=== PATIENT | female | born 1990 | race Caucasian/White ===

== ENCOUNTER → 2018-07-26 | Outpatient (CLI) | payer OTHER ==
--- NOTE | 2018-07-26 14:31 | REP ---
Right foot: Four views. History: Pain. Post injury. Swelling and bruising. Findings: Four views of the right foot demonstrate a transversely oriented nondisplaced fracture through the proximal end of the fifth metatarsal. This is slightly diastatic but not displaced. There is associated soft-tissue swelling. Impression: Nondisplaced fifth proximal metatarsal fracture. Electronically Signed by Anshu Aguilar MD 07/26/2018 02:23 P
--- NOTE | 2018-07-26 16:35 | REP ---
Right ankle series: Four views. History: Pain. Findings: Four views right ankle demonstrate an intact ankle mortise. No ankle fracture is seen. The fifth proximal metatarsal fracture is noted. Impression: Nondisplaced fracture of the fifth proximal metatarsal. No ankle fracture is seen. Clothing artifact is noted. Electronically Signed by Anshu Aguilar MD 07/26/2018 04:26 P
== END ==
LOC: M LRY 13:38
PROVIDERS: ATTEND Nurse Practitioner Family
DX: S92.351A Displaced fracture of fifth metatarsal bone, right foot, initial encounter for closed fracture (principal); Y92.9 Unspecified place or not applicable; Y93.9 Activity, unspecified; Y99.9 Unspecified external cause status; X58.XXXA Exposure to other specified factors, initial encounter
CPT/HCPCS: 29515; 73610; 73630; G0463

== ENCOUNTER → 2019-02-10 | Outpatient (REF) | payer OTHER | LOC: M SFHCLERA 08:41 | PROVIDERS: ATTEND Nurse Practitioner Family | DX: N92.6 Irregular menstruation, unspecified (principal) | CPT/HCPCS: 84702; G0463 ==

== ENCOUNTER → 2019-04-02 | Outpatient (CLI) | payer OTHER ==
[2019-04-02 13:22] LABS: BASO % 0.4 % (0.0-1.0); EOS # 0.1 10^3/uL (0.0-0.5); EOS % 1.3 % (0.0-3.0); HEMATOCRIT 43.1 % (36.0-47.0); HEMOGLOBIN 13.7 g/dl (12.0-15.5); LYMPH # 1.9 10^3/uL (1.5-5.0); LYMPH % 17.9 % (24.0-44.0); MEAN CORPUSCULAR HGB CONC 31.8 g/dl (32.0-36.5); MEAN CORPUSCULAR VOLUME 84.8 fl (80.0-96.0); MONO # 0.6 10^3/uL (0.0-0.8); MONO % 5.7 % (0.0-5.0); NEUTROPHILS # 7.8 10^3/uL (1.5-8.5); NEUTROPHILS % 74.3 % (36.0-66.0); PLATELET COUNT, AUTOMATED 288 10^3/uL (150-450); RED BLOOD COUNT 5.08 10^6/uL (4.00-5.40); WHITE BLOOD COUNT 10.5 10^3/uL (4.0-10.0)
[2019-04-02 14:38] LABS: HEPATITIS C VIRUS ABY INDEX 0.1 INDEX (<0.8); HIV 1&2 SCREEN CENTAUR NEGATIVE (NEGATIVE); RUBELLA IgG QUALITATIVE IMMUNE (IMMUNE)
[2019-04-02 15:06] LABS: CHLAMYDIA DNA AMPLIFICATION NEGATIVE (NEGATIVE); GC DNA AMPLIFICATION NEGATIVE (NEGATIVE)
== END ==
LOC: M PLALAB 10:48
PROVIDERS: ATTEND Obstetrics & Gynecology
DX: Z34.81 Encounter for supervision of other normal pregnancy, first trimester (principal)

== ENCOUNTER → 2019-05-19 | Outpatient (CLI) | payer OTHER ==
--- NOTE | 2019-05-20 02:40 | REP ---
Clinical: Anatomical evaluation. Comparison: None. Findings: Examination demonstrates a single live intrauterine in cephalic presentation. motion is identified by technologist. Placenta is noted anterior and grade I without evidence for placenta previa or abruption. Amniotic fluid volume is normal. Cervix measures 4.6 cm in length and appears closed. Nuchal cord cannot be excluded. Gestational age by LMP 18 weeks 3 days with MERRY 10/17/2019 . Gestational age by current measurements 17 weeks 6 days with MERRY 10/21/2019 . FHR equals 141 beats per minute. BPD 3.9 cm 18 weeks 0 days HC 14.9 cm 18 weeks 0 days AC 12.0 cm 17 weeks 5 days FL 2.5 cm 17 weeks 5 days HL 2.5 cm 17 weeks 4 days HC/AC ratio 1.24 Estimated weight 207 grams ( 22nd percentile). Anatomical assessment demonstrates normal structures including cranium, choroid plexus, cavum, cerebellum/posterior fossa, facial features, lungs, diaphragm, stomach, cord insertion/three-vessel cord, kidneys/bladder, spine, and extremities. Impression: 1. Single live intrauterine in cephalic presentation demonstrating appropriate interval growth. 2. Nuchal cord cannot be excluded. 3. Limited evaluation of the heart/ventricular outflow tracts may warrant reevaluation and follow-up. Electronically Signed by Lebron Whyte MD 05/20/2019 02:32 A
== END ==
LOC: M RAD 09:13
PROVIDERS: ATTEND Obstetrics & Gynecology
DX: Z34.82 Encounter for supervision of other normal pregnancy, second trimester (principal); Z36.89 Encounter for other specified antenatal screening; Z3A.18 18 weeks gestation of pregnancy

== ENCOUNTER → 2019-06-11 | Outpatient (CLI) | payer OTHER ==
--- NOTE | 2019-06-12 15:35 | REP ---
Clinical: Anatomical evaluation. Comparison: 05/19/2019 . Findings: Examination demonstrates a single live intrauterine in transverse (head to maternal right) presentation. motion is identified by technologist. Placenta is noted anterior and grade zero without evidence for placenta previa or abruption. Amniotic fluid volume is normal. Cervix measures 4.0 cm in length and appears closed. No evidence for nuchal cord. Gestational age by LMP 21 weeks 5 days with MERRY 10/17/2019 . Gestational age by current measurements 21 weeks 1 day with MERRY 10/21/2019 . FHR equals 148 beats per minute. Estimated weight 437 grams ( 43rd percentile). Anatomical assessment demonstrates normal structures including four-chamber heart/right ventricular outflow tracts, diaphragm, stomach, cord insertion/three-vessel cord, and bladder. Impression: Single live intrauterine in transverse lie demonstrating appropriate interval growth. Continued limited evaluation of the left cardiac ventricular outflow tract. In conjunction with prior examination the remainder of the anatomical assessment is complete and normal. Electronically Signed by Lebron Whyte MD 06/12/2019 03:26 P
== END ==
LOC: M WHC 09:32
PROVIDERS: ATTEND Advanced Practice Midwife
DX: O32.2XX0 Maternal care for transverse and oblique lie, not applicable or unspecified (principal); Z36.2 Encounter for other antenatal screening follow-up; Z3A.21 21 weeks gestation of pregnancy

== ENCOUNTER → 2019-07-17 | Outpatient (REF) | payer OTHER ==
[2019-07-17 13:08] LABS: HEMATOCRIT 35.9 % (36.0-47.0); HEMOGLOBIN 11.9 g/dl (12.0-15.5); MEAN CORPUSCULAR HEMOGLOBIN 27.5 pg (27.0-33.0); MEAN CORPUSCULAR HGB CONC 33.1 g/dl (32.0-36.5); MEAN CORPUSCULAR VOLUME 83.1 fl (80.0-96.0); PLATELET COUNT, AUTOMATED 279 10^3/uL (150-450); RED BLOOD COUNT 4.32 10^6/uL (4.00-5.40)
== END ==
LOC: M PLALAB 08:11
PROVIDERS: ATTEND Advanced Practice Midwife
DX: Z36.89 Encounter for other specified antenatal screening (principal); Z3A.00 Weeks of gestation of pregnancy not specified

== ENCOUNTER 2019-09-12 13:40 | Outpatient (CLI) | payer OTHER ==
[~2019-09-12] VITALS: Ht 162.6 cm; Wt 97.2 kg
[2019-09-12] VITALS (9 sets, daily range): BP systolic 121–152; BP diastolic 66–85
[2019-09-12] MEDS ORDERED: STUACAP PO (13:50)
[2019-09-12 14:41] LABS: HEMATOCRIT 34.7 % (36.0-47.0); HEMOGLOBIN 11.5 g/dl (12.0-15.5); MEAN CORPUSCULAR HGB CONC 33.1 g/dl (32.0-36.5); MEAN CORPUSCULAR VOLUME 78.3 fl (80.0-96.0); PLATELET COUNT, AUTOMATED 273 10^3/uL (150-450); RED BLOOD COUNT 4.43 10^6/uL (4.00-5.40); WHITE BLOOD COUNT 11.6 10^3/uL (4.0-10.0)
[2019-09-12 14:51] LABS: ALT/SGPT 12 U/L (12-78); BILIRUBIN,TOTAL 0.3 MG/DL (0.2-1.0); CREATININE FOR GFR 0.68 MG/DL (0.55-1.30); GLOMERULAR FILTRATION RATE > 60.0 (>60); LDH LACTATE DEHYDROGENASE 169 U/L (84-246); URIC ACID 5.1 MG/DL (2.6-6.0)
[2019-09-12 16:10] LABS: TOTAL PROTEIN,RANDOM URINE 26.6 MG/DL (0.0-12.0)
--- NOTE | 2019-09-12 16:12 | REP ---
Obstetric sonography: History: Gestational hypertension. Limited study. Findings: Scanning through the gravid uterus demonstrates a single living intrauterine gestation in a cephalic lie. Amniotic fluid is subjectively normal. CEE is normal at 11.8 cm. A anterior right-sided grade 2 placenta is seen without evidence of previa or abruption. Umbilical cord is seen draping over the shoulders. SD ratio in the umbilical cord artery by Doppler is normal at 2.29. Biophysical profile score is eight out of a possible eight. heart rate is recorded 145 beats per minute. Electronically Signed by Anshu Aguilar MD 09/12/2019 04:03 P
--- NOTE | 2019-09-12 16:47 | IPNPDOC ---
Text Note Date of Service The patient was seen on 09/12/19. NOTE Outpatient 28 yo G1. MERRY 10/17/2019. Presents from office after routine visit where her blood pressure was found to be elevated, severe range x2. Denies headaches, visual disturbances or chest pain. Cat I tracing. BPP 12/12. Blood pressures here WNL with exception of once upon return from ultrasound. Labs WNL. Urine ration 0.11 Reviewed pt status with Dr Velarde. Discharge home. Warnings reviewed. Has appt next week. VS,Fishbone, I+O VS, Fishbone, I+O Laboratory Tests 09/12/19 14:18 Vital Signs Date Time Temp Pulse Resp B/P (MAP) Pulse Ox O2 Delivery O2 Flow Rate FiO2 09/12/19 16:03 98 139/75 (96) 09/12/19 14:03 97.2 16 Room Air Vivian Metzger CNM September 12, 2019 16:47
== END 2019-09-12 16:50 | disposition home or self-care (01) ==
LOC: M LDO 13:40
PROVIDERS: ATTEND Advanced Practice Midwife
DX: O26.899 Other specified pregnancy related conditions, unspecified trimester (principal); R03.0 Elevated blood-pressure reading, without diagnosis of hypertension; Z3A.00 Weeks of gestation of pregnancy not specified
CPT/HCPCS: 36415; 59025; 76815; 76819; 76820; 82247; 82565; 82570; 83615; 84156; 84450; 84460; 84550; 85027; G0378; G0463

== ENCOUNTER → 2019-09-12 | Outpatient (CLI) | payer OTHER ==
[~2019-09-12] MED LIST: LABE20TAB PO; STUACAP PO
== END ==
LOC: M WHC 10:56
PROVIDERS: ATTEND Advanced Practice Midwife
DX: Z36.85 Encounter for antenatal screening for Streptococcus B (principal); Z3A.35 35 weeks gestation of pregnancy

== ENCOUNTER 2019-09-18 12:16 | Outpatient (CLI) | payer OTHER ==
[~2019-09-18] VITALS: Ht 162.6 cm; Wt 98.5 kg
[2019-09-18] VITALS (7 sets, daily range): BP systolic 130–185; BP diastolic 64–113
[~2019-09-18 12:16] MED LIST changes: -LABE20TAB PO
[2019-09-18 14:33] LABS: HEMATOCRIT 36.7 % (36.0-47.0); MEAN CORPUSCULAR HEMOGLOBIN 25.4 pg (27.0-33.0); MEAN CORPUSCULAR HGB CONC 32.7 g/dl (32.0-36.5); MEAN CORPUSCULAR VOLUME 77.6 fl (80.0-96.0); PLATELET COUNT, AUTOMATED 267 10^3/uL (150-450); RED BLOOD COUNT 4.73 10^6/uL (4.00-5.40); WHITE BLOOD COUNT 10.9 10^3/uL (4.0-10.0)
[2019-09-18] MEDS: BETAMETHASONE SOLUSPAN 6MG/ML 5ML VIAL (J0702 PER 3MG) IM ONE (14:46)
[2019-09-18 14:51] LABS: CREATININE,RANDOM URINE 76.6 MG/DL
[2019-09-18 15:05] LABS: ALT/SGPT 13 U/L (12-78); BILIRUBIN,TOTAL 0.5 MG/DL (0.2-1.0); CREATININE FOR GFR 0.52 MG/DL (0.55-1.30); GLOMERULAR FILTRATION RATE > 60.0 (>60); LDH LACTATE DEHYDROGENASE 193 U/L (84-246); URIC ACID 5.2 MG/DL (2.6-6.0)
[2019-09-18] MEDS: LABETALOL 200 MG TAB PO ONE (15:19)
--- NOTE | 2019-09-18 15:35 | REP ---
OB ULTRASOUND: Real-time sonographic evaluation of the gravid uterus performed. There is a single living intrauterine gestation. The estimated gestational age is 35 weeks 6 days, EDC 10/17/2019. Today's measurements indicate appropriate growth. Biometry and Growth: BPD 89 mm = 36 weeks 0 days, 52nd percentile HC 319 mm = 35 weeks 6 days, 50th percentile AC 314 mm = 35 weeks 3 days, 42nd percentile FL 69 mm = 35 weeks 4 days, 45th percentile HC/AC ratio 1.01 within normal range of 0.93 to 1.12 Estimated weight 2705 grams, 44th percentile. Cervical length: heart rate: 157 beats per minute. position: Vertex. Placenta: Anterior and grade 1 with no previa or abruption. Amniotic fluid: Within normal limits, CEE 12.8 within normal range of 7.7 to 24.9. S/D ratio: 2.17, normal range 2.0 to 3.0. RI: 0.54, normal range 0.59 to 0.75. Visualized anatomy today includes the four-chamber heart, stomach, kidneys, bladder and spine which are grossly unremarkable. There is moderate distention of the bladder. Electronically Signed by Hebert Pino MD 09/18/2019 04:14 P
--- NOTE | 2019-09-18 16:12 | IPNPDOC ---
Text Note Date of Service The patient was seen on 09/18/19. NOTE Objective: Angy is a 28-year-old at 35.6 estimated gestational age who was sent over from the office for elevated blood pressures. She is currently asymptomatic and denies headaches, changes to vision, chest pain, or shortness of breath. She started having elevated blood pressures in the office on 09/12/2019, and was subsequently sent to labor and delivery to rule out preeclampsia. Lab work at that time was unremarkable, with a normal spot urine, normal CBC, and normal preeclamptic panel. GBS done at that time was negative. She also had an ultrasound for BPP (which was 8 out of 8), CEE was normal at 11.8. Single living intrauterine gestation was in a cephalic lie, and there was an anterior right-sided grade 2 placenta without evidence of previa or abruption. She had a blood pressure of 166/86 in the office today, recheck was 164/98, and was sent over for recheck/rule out preeclampsia. She denies leakage of fluid or vaginal bleeding. She reports good movement. Objective: Vital signs: On arrival blood pressure was 161/113, sitting. Repeat lying on her left side was 130/68. Most recent blood pressure lying on her left side was 138/78. General: No acute distress, pleasant and cooperative HEENT: Sclera anicteric, pupils equal round and reactive to light Heart: Regular rate and rhythm; no murmurs, gallops, or rubs Lungs: Clear to auscultation bilaterally; no wheezes, rhonchi, or rales Abdomen: Gravid, no palpable contractions. Baby vertex by Reji's maneuver. heart rate: 145, moderate variability, accelerations, no decelerations (reactive NST) TOCO: no contractions Assessment: 28-year-old at 35.6 estimated gestational age, being evaluated for high blood pressure, possibly gestational hypertension. Rule out preeclampsia. Plan: Admit to labor and delivery for observation, serial blood pressures Repeat preeclamptic panel Ultrasound for growth Give first dose of betamethasone today If labs ok, will give PO labetalol, most likely monitor overnight VS,Fishbone, I+O VS, Fishbone, I+O Vital Signs Date Time Temp Pulse Resp B/P (MAP) Pulse Ox O2 Delivery O2 Flow Rate FiO2 09/18/19 13:47 103 138/78 (98) 09/18/19 12:45 98.5 18 GME ATTESTATION GME ATTESTATION My faculty preceptor for this patient encounter was physically present during the encounter and was fully available. All aspects of the patient interview, examination, medical decision making process, and medical care plan development were reviewed and approved by the faculty preceptor. The faculty preceptor is aware and concurs with the plan as stated in the body of this note and will attest to such by his/her cosignature. MATT BURGESS D.O. September 18, 2019 14:11
[2019-09-19] VITALS (10 sets, daily range): BP systolic 119–140; BP diastolic 60–80
[2019-09-19] MEDS: LABETALOL 200 MG TAB PO SCH (13:02)
[2019-09-19] MEDS: BETAMETHASONE SOLUSPAN 6MG/ML 5ML VIAL (J0702 PER 3MG) IM ONE (14:48)
[2019-09-19] MEDS ORDERED: LABE20TAB PO (15:33)
--- NOTE | 2019-09-19 15:48 | IPNPDOC ---
Text Note Date of Service The patient was seen on 09/19/19. NOTE Outpatient Blood pressures well controlled with labetalol 200mg BID Cat I tracing Preeclampsia labs WNL. Pt denies severe features. Pt status reviewed with Dr Rowland. OK for discharge. Partner is out of quarantine . Scheduled for IOL 09/29/2019. Protocol reviewed. Twice weekly appts with NST. BPP next week. Warnings reviewed. VS,Fishbone, I+O VS, Fishbone, I+O Vital Signs Date Time Temp Pulse Resp B/P (MAP) Pulse Ox O2 Delivery O2 Flow Rate FiO2 09/19/19 14:37 88 18 124/60 (81) 09/19/19 11:55 97.7 09/18/19 19:49 97 Room Air Vivian Metzger CNM September 19, 2019 15:48
== END 2019-09-19 15:53 | disposition home or self-care (01) ==
LOC: M LDO 12:16
PROVIDERS: ATTEND Obstetrics & Gynecology
DX: O16.3 Unspecified maternal hypertension, third trimester (principal); Z3A.35 35 weeks gestation of pregnancy
CPT/HCPCS: 36415; 59025; 76816; 76820; 82247; 82565; 82570; 83615; 84156; 84450; 84460; 84550; 85027; G0378; G0463; J0702

== ENCOUNTER → 2019-09-22 | Outpatient (CLI) | payer OTHER ==
[~2019-09-22] MED LIST changes: +LABE20TAB PO
--- NOTE | 2019-09-23 02:44 | REP ---
Clinical: well-being evaluation. Comparison: 09/11/2019 . Findings: Examination demonstrates a single live intrauterine in cephalic presentation. motion is identified by technologist. Placenta is noted anterior and grade I I without evidence for placenta previa or abruption. Amniotic fluid volume is normal. Cervix appears closed. Gestational age by first US 36 weeks 3 days with MERRY 10/17/2019 . FHR equals 155 beats per minute. Biophysical profile score: 8/8 Amniotic fluid index: 8.8 cm (7.6 - 24.7) Umbilical cord SD ratio: 2.30 Impression: 1. Single live intrauterine in cephalic presentation. 2. Biophysical profile score 8/8 3. Amniotic fluid volume is lower limits of normal.
== END ==
LOC: M WHC 09:08
PROVIDERS: ATTEND Advanced Practice Midwife
DX: O16.3 Unspecified maternal hypertension, third trimester (principal); Z3A.36 36 weeks gestation of pregnancy

== ENCOUNTER 2019-09-29 10:45 | Inpatient (IN) | payer OTHER ==
[~2019-09-29] VITALS: Ht 162.6 cm; Wt 95.4 kg
[2019-09-29] VITALS (15 sets, daily range): BP systolic 122–173; BP diastolic 65–93
[2019-09-29] MEDS ORDERED: LACTATED RINGER'S 1000 ML IV STA (10:50)
[2019-09-29] MEDS: miSOPROStol 50 MCG 1/2 TAB (S0191) PO SCH ×2 (11:00→15:07)
--- NOTE | 2019-09-29 11:23 | HPEPDOC ---
Obstetrical History & Physical General Date of Admission September 29, 2019 at 10:45 Primary Care Physician: ROBERT PENALOZA CNM History of Present Illness Patient is a 28-year-old female who is a at 37.3 weeks gestation with an MERRY of 10/17/19 based off of her LMP and consistent with her first trimester ultrasound. She initiated care in her first trimester with [facility]. Her has been complicated by preeclampsia. She was placed on labetalol 200 mg BID and is betamethasone complete. She denies any preeclamptic symptoms. She reports active movement, denies vaginal bleeding, denies leaking of fluid or contractions. 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 Past Medical History Medical History No pertinent medical history Surgical History: Other (removal of cyst on right shoulder) Family History Significant Family History: Diabetes, Heart disease, Hypertension, Other (anxiety, depression, thyroid disease, rheumatoid arthritis) Social History Marital Status: Family situation: Spouse/partner home Psychosocial History: No pertinent psych hx * Smoker: non-smoker Alcohol: Denies Drugs: denies Abuse Violence Screening Have you been hit/kicked/slapp: No Have you been sexually assault: No Allergies Coded Allergies: soap (Verified Allergy, Unknown, GENE DISH SOAP- HIVES, 09/12/19) chocolate flavor (Verified Adverse Reaction, Unknown, "" I NTOLERANCE, 09/12/19) Medications Scheduled Labetalol HCl (Labetalol HCl) 200 Mg Tablet, 200 MG PO BID Miscellaneous Medications Pnv No.63/Iron,Carb/Folic/Dha (Kuldip One Capsule) 1 Each Capsule, 1 CAP PO Physical Examination Physical Examination GENERAL: Alert and oriented times three. BREAST: . ABDOMEN: Gravid and non-tender to touch. FETUS: Is vertex (VTX) by sterile vaginal examination (SVE), fetus is vertex (VTX) by Reji. HEART RATE: Regular rate and rhythm. LUNGS: Clear to auscultation (CTA). EXTREMITIES: Generalized to 1+ pitting edema. No clonus. Deep tendon reflexes (DTRs) + 2. Laboratory Data 24H LABS Laboratory Tests 2 09/29/19 10:54: Serology Scanned Report Hepatitis B Testing Urine Culture: No Growth Pertinent Laboratoy Data Blood Type: A+ RBC Antibody Screen: Negative HIV: Negative Hepatitis B: Negative Hepatitis C: Negative Rapid Plasma Reagin: Nonreactive Rubella: Immune Chlamydia/Gonorrhea: Negative Group B Streptococcus: Negative Glucose Tolerance Test: 124 Steroid Therapy Steroid Therapy: Yes Date #1: September 18, 2019 Date #2: September 19, 2019 Reason preeclampsia with severe range blood pressures Vaginal Examination Dilation: 2cm Effacement: 80% Station: -2 Cervical Consistency: Soft Cervical Position: Anterior Presentation: Cephalic presentation Position: Vertex (occiput) Assessment Heart Rate (FHR): 140 Variability: Moderate Accelerations: Positive Decelerations: None Tocometer Contractions: No Multi-drug resistant Organism: No history of MDRO Assessment/Plan Assessment IUP at 37.3 weeks gestation Category I FHR tracing preeclampsia GBS negative Plan Admit to L&D for IOL for preeclampsia. Dr. Velarde is aware of patient being in department and plan of care collaborated. OOB ad rod. Diet: regular then clear liquid diet when IV Pitocin is started. Group B Streptococcus negative. Labs and intravenous (IV) per unit protocol. Counseled on Cytotec and IV Pitocin for induction of labor (IOL). Cytotec ordered and to be started. Anesthesia consult per patient's request. Lactated Ringers (LR): Bolus 500 mL prior to epidural then at 125 mL/hr. Anticipate cervical ripening. C-S as appropriate. ROBERT PENALOZA CNM September 29, 2019 11:23
[2019-09-29 11:36] LABS: HEMATOCRIT 35.4 % (36.0-47.0); HEMOGLOBIN 11.4 g/dl (12.0-15.5); MEAN CORPUSCULAR HEMOGLOBIN 24.7 pg (27.0-33.0); MEAN CORPUSCULAR HGB CONC 32.2 g/dl (32.0-36.5); MEAN CORPUSCULAR VOLUME 76.8 fl (80.0-96.0); PLATELET COUNT, AUTOMATED 304 10^3/uL (150-450); RED BLOOD COUNT 4.61 10^6/uL (4.00-5.40); WHITE BLOOD COUNT 12.9 10^3/uL (4.0-10.0)
[2019-09-29 11:59] LABS: ALT/SGPT 17 U/L (12-78); BILIRUBIN,TOTAL 0.4 MG/DL (0.2-1.0); CREATININE FOR GFR 0.55 MG/DL (0.55-1.30); GLOMERULAR FILTRATION RATE > 60.0 (>60); LDH LACTATE DEHYDROGENASE 195 U/L (84-246); URIC ACID 5.9 MG/DL (2.6-6.0)
[2019-09-29 12:22] LABS: TOTAL PROTEIN,RANDOM URINE 38.7 MG/DL (0.0-12.0)
[2019-09-29] MEDS ORDERED: OXYTOCIN DRIP 30 UNITS in IV 1 EA IV SCH (19:00)
[2019-09-29] MEDS: LR 1,000 ML IV SCH (19:30)
[2019-09-30] VITALS (56 sets, daily range): BP systolic 124–189; BP diastolic 57–106
[2019-09-30] MEDS ORDERED: FENTANYL 2MCG/ML ROPIVACAINE 0.2% IN 0.9% NACL 100ML IVBAG As Ordered ONE (00:21)
[2019-09-30] MEDS ORDERED: NALOXONE INJ 0.4MG/1ML VIAL (J2310 PER 1MG) IV PRN (01:20)
[2019-09-30] MEDS ORDERED: diphenhydrAMINE 50MG/ML VIAL (J1200) IV PRN (01:20)
[2019-09-30] MEDS ORDERED: ePHEDrine SULFATE 25 MG/5 ML(5MG/ML) SYRINGE IV PRN (01:20)
[2019-09-30] MEDS ORDERED: ONDANSETRON 4MG/2ML VIAL IV PRN (01:20)
[2019-09-30] MEDS ORDERED: REFRIGERATOR IV KEYS XX PRN (01:20)
[2019-09-30] MEDS ORDERED: LACTATED RINGER'S 1000 ML IV PRN (01:20)
[2019-09-30] MEDS ORDERED: EPIDURAL/PCA KEYS XX PRN (01:20)
[2019-09-30] MEDS ORDERED: EPIDURAL COMMENT XX SCH (01:20)
[2019-09-30] MEDS: FENTANYL/ROPIVACAINE/NACL BAG 100 ML EPIDURAL SCH ×2 (07:19→09:44)
--- NOTE | 2019-09-30 07:25 | IPNPDOC ---
Obstetrical Progress Note Date of Service September 30, 2019 Subjective Patient is comfortable with her epidural. Reports nausea after lying down and is vomiting. Objective Vital Signs Date Time Temp Pulse Resp B/P (MAP) Pulse Ox O2 Delivery O2 Flow Rate FiO2 09/30/19 06:06 77 155/85 (108) 09/30/19 03:15 98.7 09/29/19 17:09 18 Assessment Heart Rate (FHR): 120 Variability: Moderate Accelerations: Positive Decelerations: None Heart Rate Tracing: Category I Tocometer Contractions: Yes Frequency: regular, every 1-3 min. Sterile Vaginal Examination Dilation: 4 cm Effacement (%): 80% Station: -2 Cervical Consistency: Soft Cervical Position: Anterior Postion/Presentation: Cephalic presentation Assessment and Plan Age: 28 : 1 Term: 0 Pre-term: 0 Abortions: 0 Livin EGA at Admission: 37.3 Status: Reassuring Group B Streptococcus: Negative Anticipate: Vaginal Delivery Additional Comments IV Pitocin is at 14 mu/min. AROM to a moderate amount of clear fluid. IUPC placed due to difficulty obtaining contractions. Reordered Labetalol. ROBERT PENALOZA CNM September 30, 2019 07:25
[2019-09-30] MEDS: LR 1,000 ML IV SCH (08:37)
[2019-09-30] MEDS: LABETALOL 200 MG TAB PO SCH ×2 (08:38→21:42)
[2019-09-30] MEDS ORDERED: OXYTOCIN 30 UNITS IN 0.9% NaCl 500ML IV BAG (J2590) As Ordered ONE (14:01)
[2019-09-30] MEDS: OXYTOCIN DRIP 30 UNITS in IV 1 EA IV SCH (14:06)
[2019-09-30] MEDS ORDERED: OXYTOCIN DRIP 30 UNITS in IV 1 EA IV SCH (14:06)
[2019-09-30] MEDS ORDERED: MEASLES,MUMPS,RUBELLA VACCINE INJ (MMR-II) (90707) SC SCH (14:15)
[2019-09-30] MEDS ORDERED: DOCUSATE SODIUM 100 MG CAP PO PRN (14:15)
[2019-09-30] MEDS ORDERED: ANUSOL HC CREAM 30GM TOP PRN (14:15)
[2019-09-30] MEDS ORDERED: RHOGAM 300 MCG (1500 IU) INJ (J2790) IM SCH (14:15)
[2019-09-30] MEDS ORDERED: ACETAMINOPHEN 500 MG TAB PO PRN (14:15)
[2019-09-30] MEDS ORDERED: LIDOCAINE 1% MDV 20ML VIAL INFIL ONE (14:15)
[2019-09-30] MEDS ORDERED: DIBUCAINE 1% OINTMENT 30GM TOP PRN (14:15)
[2019-09-30] MEDS ORDERED: AMPICILLIN SOD/SULBACTAM SOD 3 GM in D5W MINI-BAG PLUS 100 ML IV ONE (14:15)
--- NOTE | 2019-09-30 14:31 | DN ---
DATE: 09/30/2019 Angy is a 28-year-old, 1, para 1-0-0-1 now, who was admitted to labor and delivery for induction of labor due to preeclampsia. Misoprostol and IV Pitocin was used and labor did ensue. She utilized an epidural for her labor coping. She reached complete dilation at 1235. She pushed to a normal spontaneous vaginal delivery of a live female infant in right occiput anterior (ELKE) position with restitution to right occiput transverse (ROT) position of 1323. There was no nucal cord. The shoulders delivered spontaneously and the corpus immediately followed. The female was placed on the maternal abdomen crying and active. Her mouth and nares were bulb suctioned. The cord was clamped x2 and cut by myself. Cord blood was obtained. There was a manual removal of an intact placenta with a three-vessel cord. The umbilical cord evulsed prior to manual removal. The placenta was inspected and noted to be intact. All cotyledons in place. Uterine hemostasis achieved with IV Pitocin rapid infusion and uterine fundal massage. Estimated blood loss 350 mL. Perineum and vagina inspected and noted to have a first-degree midline laceration. The laceration was infiltrated with 1% lidocaine and repaired with #3-0 Vicryl Rapide in the usual fashion. The female weighed 2570 grams, 6 pounds 1 ounce. Apgars were 9 and 9. Mom is going to breast feed her daughter and the family have named her Danisha. At the close of delivery, lap counts, needle counts and instrument counts were correct and verified. [facility]
[2019-09-30] MEDS: IBUPROFEN 800 MG TAB PO PRN (16:22)
[2019-09-30] MEDS ORDERED: SLF 3 ML SYR IV PRN (17:30)
[2019-09-30] MEDS: ACETAMINOPHEN TAB 650MG DOSE (2X325MG) PO PRN (21:43)
[2019-09-30] MEDS: SLF 3 ML SYR IV SCH (22:13)
[2019-10-01] MEDS: IBUPROFEN 600 MG TAB PO PRN (05:41)
[2019-10-01] MEDS: SLF 3 ML SYR IV SCH ×2 (05:41→14:09)
[2019-10-01 06:10] VITALS: BP 138/82
[2019-10-01] MEDS: LABETALOL 200 MG TAB PO SCH ×2 (08:18→21:22)
[2019-10-01] MEDS: PRENATAL VITAMINS CHEWABLE TABLET PO SCH (08:18)
[2019-10-01] MEDS ORDERED: INFLUENZA QUADRIVALENT PF VACCINE 0.5ML SYRINGE (90686) IM ONE (09:00)
[2019-10-01 18:00] VITALS: BP 121/64
[2019-10-01 21:20] VITALS: BP 142/75
[2019-10-01 21:22] VITALS: BP 142/75
[2019-10-02] MEDS: IBUPROFEN 800 MG TAB PO PRN (00:30)
[2019-10-02 06:00] VITALS: BP 139/83
[2019-10-02] MEDS ORDERED: INFLUENZA QUADRIVALENT PF VACCINE 0.5ML SYRINGE (90686) IM ONE (09:00)
[2019-10-02] MEDS: PRENATAL VITAMINS CHEWABLE TABLET PO SCH (09:56)
[2019-10-02] MEDS: LABETALOL 200 MG TAB PO SCH (09:57)
[2019-10-02] MEDS: ACETAMINOPHEN TAB 650MG DOSE (2X325MG) PO PRN (10:04)
[2019-10-02] MEDS: IBUPROFEN 600 MG TAB PO PRN (13:03)
== END 2019-10-02 13:15 | disposition home or self-care (01) | DRG 807 ==
LOC: M LDI 10:45 → M OBS 09-30 15:51
PROVIDERS: ADMIT Advanced Practice Midwife; ATTEND Advanced Practice Midwife
PROC: 3E0P7GC Introduction of Other Therapeutic Substance into Female Reproductive, Via Natural or Artificial Opening (ICD-10-PCS; 2019-09-29)
PROC: 10E0XZZ Delivery of Products of Conception, External Approach (ICD-10-PCS; principal; 2019-09-30)
PROC: 0HQ9XZZ Repair Perineum Skin, External Approach (ICD-10-PCS; 2019-09-30)
PROC: 10907ZC Drainage of Amniotic Fluid, Therapeutic from Products of Conception, Via Natural or Artificial Opening (ICD-10-PCS; 2019-09-30)
DX: O14.14 Severe pre-eclampsia complicating childbirth (principal); Z37.0 Single live birth; Z3A.37 37 weeks gestation of pregnancy; O70.0 First degree perineal laceration during delivery

== ENCOUNTER → 2020-04-26 | Outpatient (CLI) | payer SELFPAY | LOC: M LABSMTC 12:09 | PROVIDERS: ATTEND Pediatrics | DX: Z20.828 Contact with and (suspected) exposure to other viral communicable diseases (principal) ==

== ENCOUNTER 2020-12-08 10:41 | Emergency (ER) | payer OTHER ==
[~2020-12-08] VITALS: Ht 162.6 cm; Wt 90.9 kg
[2020-12-08] MEDS ORDERED: CLOB0.0548 (11:14)
[2020-12-08 13:24] VITALS: BP 135/82
== END 2020-12-08 13:25 | disposition home or self-care (01) ==
LOC: M ED 10:41
DX: K42.9 Umbilical hernia without obstruction or gangrene (principal); E66.9 Obesity, unspecified; Z91.018 Allergy to other foods; Z91.89 Other specified personal risk factors, not elsewhere classified

== ENCOUNTER → 2020-12-17 | Outpatient (REF) | payer OTHER ==
[~2020-12-17] MED LIST changes: +CLOB0.0548
== END ==
LOC: M SFHCLERA 18:06
PROVIDERS: ATTEND Nurse Practitioner Family
DX: Z12.4 Encounter for screening for malignant neoplasm of cervix (principal)